=== PATIENT | male | born 1990 | race Two or more races ===

== ENCOUNTER 2023-02-22 07:11 | Day surgery (SDC) | payer OTHER ==
[~2023-02-22] VITALS: Ht 177.8 cm; Wt 77.1 kg
[~2023-02-22 07:11] MED LIST: DYMISTA NASAL S23 GM
[2023-02-22] MEDS ORDERED: AYR SALINE50 ML NASAL (15:09)
[2023-02-22] MEDS ORDERED: CEPHALEXIN500 MG PO (15:09)
== END 2023-02-22 17:50 | disposition home or self-care (01) ==
LOC: CIR.AMB 07:11
PROVIDERS: ATTEND Otolaryngology Otology & Neurotology
DX: J34.2 Deviated nasal septum (principal); J34.3 Hypertrophy of nasal turbinates; Z20.822 Contact with and (suspected) exposure to COVID-19; Z91.013 Allergy to seafood